=== PATIENT | female | born 1950 | race Caucasian/White ===

== ENCOUNTER 2017-01-23 09:39 | Inpatient (IN) | payer MEDICAID, OTHER ==
--- NOTE | 2017-01-23 10:00 | CPEKG ---
Heart Rate: 65 RR Interval: 923 P-R Interval: 136 QRSD Interval: 82 QT Interval: 392 QTC Interval: 408 P [place]: 63 QRS [place]: 85 T Wave [place]: -57 EKG Severity - ABNORMAL ECG - EKG Impression: SINUS RHYTHM EKG Impression: BORDERLINE RIGHT AXIS DEVIATION EKG Impression: NONSPECIFIC T ABNORMALITIES, DIFFUSE LEADS Electronically Signed By: Jaz Barton 23-Jan-2017 16:09:16
[2017-01-23 10:25] LABS: % IMMATURE GRANULYOCYTES 0.2 % (0.0-1.1); ABSOLUTE IMMATURE GRANULOCYTES 0.01 10^3/uL (0.00-0.10); ADD DIFF? NO; ADD MORPH? NO; ADD SCAN? NO; ATYPICAL LYMPHOCYTE FLAG 0 (0-99); FRAGMENT RBC FLAG 0 (0-99); HEMATOCRIT 43.9 % (38.0-47.0); HEMOGLOBIN 14.3 g/dL (12.6-16.3); LEFT SHIFT FLG 0 (0-99); LIPEMIA HEMOLYSIS FLAG 80 (0-99); MEAN CELL HEMOGLOBIN 31.6 pg (27.9-34.1); MEAN CELL HEMOGLOBIN CONCENTR. 32.6 g/dL (32.4-36.7); MEAN CELL VOLUME 96.9 fL (81.5-99.8); MEAN PLATELET VOLUME 12.3 fL (8.7-11.7); PLATELET CLUMPS FLAG 60 (0-99); PLATELET COUNT 221 10^3/uL (150-400); RED BLOOD CELL COUNT 4.53 10^6/uL (4.18-5.33); RED CELL DISTRIBUTION WIDTH 11.9 % (11.5-15.2)
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
[2017-01-23] MEDS ORDERED: ASPIRIN 81 MG CHEWABLE TAB PO ONE (11:03)
[2017-01-23 11:18] LABS: TROPONIN I 0.021 ng/mL (0-0.034)
[2017-01-23 11:28] LABS: ANION GAP 15 mEq/L (8-16); CALCIUM 9.7 mg/dL (8.5-10.4); CARBON DIOXIDE 20 mEq/l (22-31); CHLORIDE 105 mEq/L (97-110); CREATININE 0.7 mg/dL (0.6-1.0); GLOMERULAR FILTRATION RATE > 60; GLUCOSE 78 mg/dL (70-100); SODIUM 140 mEq/L (134-144)
[2017-01-23 11:30] LABS: SPECIMEN HEMOLYSIS 261
[2017-01-23 11:31] LABS: POTASSIUM 5.3 mEq/L (3.5-5.2)
[2017-01-23] MEDS ORDERED: ONDANSETRON 4 MG/2 ML VIAL IVP PRN (15:28)
[2017-01-23] MEDS ORDERED: ACETAMINOPHEN 325 MG TAB PO PRN (15:28)
[2017-01-23] MEDS ORDERED: ONDANSETRON DISINTEGRATING 4 MG TAB PO PRN (15:28)
--- NOTE | 2017-01-23 16:03 | GHP ---
[f rep st] HISTORY AND PHYSICAL DATE OF ADMISSION: 01/23/2017 HISTORY OF PRESENT ILLNESS: The patient is a pleasant 66-year-old female with a history of PR x3 wi th negative caths, presumed secondary to coronary vasospasm, who presents with increasing frequency of chest symptoms. She describes them as a pressure. Sometimes it radiates to her jaw. Last night , she had chest pressure and orthopnea. She has not had lower extremity edema. She sat up. She to ok a nitro which perhaps improved a bit, but did not entirely remove her symptoms. She sought care today. Regarding coronary disease, she had an angiogram performed in March 2015 showing normal cor onary arteries with normal LV size and function. She had a subsequent echocardiogram a couple of da ys after that, after she was readmitted with positive troponins and chest pain, showing focal area o f hypokinesis involving the mid anterior septal wall. This was not new at the time. She had been discharged on a calcium channel tiffanie diltiazem which she discontinued after a week o r so because of lower extremity edema. She takes no other medications. She has not had fever, chills. No musculoskeletal strain. No nausea, vomiting, diarrhea. No cough or shortness of breath outside the episodes that describe them. She does have some chronic low hayley k pain, and she has tried to exercise to improve it. She finds her exercise tolerance is decreasing , and she feels somewhat limited by these episodes that she has been having. REVIEW OF SYSTEMS: Complete 10-point review of systems conducted, negative except as noted in the H PI. PAST MEDICAL HISTORY: Possible vasospasm with PR. ALLERGIES: No known drug allergies. HOME MEDICATIONS: Vitamin D. SOCIAL HISTORY: She lives at a [facility] in [place]. No tobacco, no alcohol. Originally from [place], [place]. FAMILY HISTORY: Reviewed and unremarkable. PHYSICAL EXAMINATION: VITAL SIGNS: Temp 36.5, blood pressure 127/78, pulse 76, breathing 16 times a minute, 98% on room air. GENERAL: No acute distress. HEENT: Sclerae anicteric. Oropharynx stephen ar. Mucous membranes are moist. NECK: Supple without lymphadenopathy or JVD. LUNGS: Clear to au scultation bilaterally. HEART: S1, S2. ABDOMEN: Soft, nontender, nondistended. LOWER EXTREMITIE S: Without edema. Calves are nontender. SKIN: Without rash. NEUROLOGIC: Nonfocal. Chest x-ray shows no acute cardiopulmonary disease. No cardiomegaly. It is interpreted by me. EKG interpreted by me shows sinus at 65 with normal axis and intervals. There is some T-wave inversion in V3 to V5 which is new from March 2015. There is an inferior T-wave inversion which is not new. White count 4.5, hematocrit 44, platelets are 221,000. Sodium 140, potassium 5.3, chloride 105, b icarb 20, BUN 9, creatinine 0.7, glucose 78. Troponin 0.021. BNP is 2.6. I discussed the case Dr. Opal Barton. ASSESSMENT/PLAN: A 66-year-old female with a history of vasospasm presents with symptoms concerning for vasospastic angina. 1. Vasospasm. She has a potentially ischemic EKG. She has a negative but not undetectable troponi n. I will cycle her troponins. She received an aspirin in the emergency department. I will start her on verapamil given her previous intolerance of diltiazem. I will have Cardiology see her in the morning. We will check an echocardiogram and follow her on telemetry. 2. Hyperkalemia. This is mild and probably not contributing to her current presentation. We will repeat it in the morning. 3. Acidosis. Again, this is mild and unlikely to be contributing to her presentation. 4. Prophylaxis. Pharmacologic prophylaxis is indicated if in the hospital longer than 24 hours. Tyshawn carson will hold for now. DISPOSITION: Observation status. /[id number]/MODL
[2017-01-23] MEDS: VERAPAMIL 40 MG TAB PO SCH ×2 (16:32→22:07)
--- NOTE | 2017-01-23 16:49 | ECHO ---
[id number] + + [address] : : [place] [address] : : [phone] + + Adult Echocardiographic Report + ------+ :Name: Lisa KINGyuval Date: 01/23/2017 03:41 PM : : Hospital Admission Number: [id number] Locatio n: 220: :: 1950 Gender: Female Height: 66 in : :Age: 66 yrs Race: WH Weight: 144 lb : :Reason For Study: Chest Pain : : BSA: 1.7 meters 2 : :History: Vasospasm with focal WMA : + ------+ MMode/2D Measurements \T\ Calculations IVSd: 0.91 cm LVIDd: 4.4 cm FS: 43.5 % Ao root diam: LVPWd: 0.76 cm LVIDs: 2.5 cm EDV(Teich): 3.4 cm 88.4 ml LA dimension: ESV(Teich): 3.4 cm 22.2 ml EF(Teich): 74.9 % LVLd ap4: 7.2 cm SV(MOD-sp4): EDV(MOD-sp4): 34.0 ml 52.0 ml LVLs ap4: 5.8 cm ESV(MOD-sp4): 18.0 ml EF(MOD-sp4): 65.4 % Normal Measurement Values: + + :LVIDd (3.5-5.7cm) IVSd (0.6-1.1cm) LVPWd (0.6-1.1cm) Aortic Root (2.0-3.7cm)Left Atrium (1.5-4.0cm): :LV Vol(d) (76-115ml) LV Vol(s) (29-48ml) Ejec Fraction (50-65%)PV Harris (0.6- 1.2m/s) TV Harris (0.4-1.0m/s) : :MV E Harris (0.8-1.0m/s)MV A Harris (0.3-1.0m/s)LVOT Harris (0.7-1.2m/s) Asc Ao Harris ( 0.9-1.8m/s) : + + Doppler Measurements \T\ Calculations MV E max harris: 74.0 cm/sec Ao V2 max: 84.2 cm/sec MV A max harris: 59.7 cm/sec Ao max P.8 mmHg MV E/A: 1.2 Left Ventricle The left ventricle is normal in size. There is normal left ventricular wall thickness. Ejection Fraction = 55%. LV base/mid inferior wall is akinetic. There is also a focal akinetic notch visualized in the basal anteroseptal area. Right Ventricle The right ventricle is normal in size and function. Atria The left atrial size is normal. Right atrial size is normal. The atrial septum is aneurysmal. Mitral Valve The mitral valve is normal in structure and function. There is no evidence of mitral valve prolapse. There is no mitral valve stenosis. There is trace mitral regurgitation. Tricuspid Valve Normal tricuspid valve. There is trace tricuspid regurgitation. Aortic Valve The aortic valve is trileaflet. The aortic valve opens well. There is no aortic stenosis. Trace aortic regurgitation. Pulmonic Valve The pulmonic valve is normal in structure and function. There is no pulmonic valvular regurgitation. Great Vessels The aortic root is normal size. Pericardium/Pleural There is no pericardial effusion. Conclusion A complete two-dimensional transthoracic echocardiogram was performed (2D, M-mode, Doppler and color flow Doppler). LV base/mid inferior wall is akinetic. There is also a focal akinetic notch visualized in the basal anteroseptal area. Ejection Fraction = 55%. There is trace mitral regurgitation. There is trace tricuspid regurgitation. Trace aortic regurgitation. The atrial septum is aneurysmal. Final Reading Physician: Primitivo Jaramillo signed on 01/23/2017 04:48 PM Ordering Physician: Marvin Laguna Performed By: Lucero Byers, [facility]
[2017-01-24 05:10] LABS: ANION GAP 7 mEq/L (8-16); CALCIUM 9.3 mg/dL (8.5-10.4); CARBON DIOXIDE 25 mEq/l (22-31); CHLORIDE 107 mEq/L (97-110); CREATININE 0.7 mg/dL (0.6-1.0); GLOMERULAR FILTRATION RATE > 60; GLUCOSE 75 mg/dL (70-100); POTASSIUM 4.2 mEq/L (3.5-5.2); SODIUM 139 mEq/L (134-144)
[2017-01-24 05:20] LABS: TROPONIN I < 0.012 ng/mL (0-0.034)
[2017-01-24] MEDS: ASPIRIN 81 MG CHEWABLE TAB PO SCH (08:27)
[2017-01-24] MEDS: CHOLECALCIFEROL VIT D3 1,000 UNITS TAB PO SCH (08:27)
[2017-01-24] MEDS: VERAPAMIL 40 MG TAB PO SCH (08:28)
[2017-01-24] MEDS ORDERED: Herbals/Supplements -Info Only PO SCH (09:00)
--- NOTE | 2017-01-24 09:01 | CPEKG ---
Heart Rate: 69 RR Interval: 870 P-R Interval: 132 QRSD Interval: 76 QT Interval: 362 QTC Interval: 388 P [place]: 73 QRS [place]: 94 T Wave [place]: -32 EKG Severity - BORDERLINE ECG - EKG Impression: SINUS RHYTHM EKG Impression: RIGHT AXIS DEVIATION EKG Impression: BORDERLINE T ABNORMALITIES, DIFFUSE LEADS Electronically Signed By: Mike Vásquez 24-Jan-2017 15:52:29
[2017-01-24] MEDS ORDERED: REGADENOSON 0.4 MG/5 ML SYR IVP ONE (11:27)
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
--- NOTE | 2017-01-24 16:21 | HOSPPROG ---
Hospitalist Progress Note Assessment/Plan: 66 yo F w likely vasospastic angina admitted w chest sx, arm sx cv: neg stress echo unchanged willing to take diltiazem chest sx: takes NSAIDS trial of ppi discussed at length w pt arm sx: MRI of neck hyperkalemia: resolved no events tele dispo: inpt Subjective: tele: no events. case d/w dr gamez Objective: Vital Signs Temp Pulse Resp BP Pulse Ox 36.6 C 72 12 130/79 H 97 01/24/17 12:00 01/24/17 12:00 01/24/17 12:00 01/24/17 12:00 01/24/17 12:00 Laboratory Results 01/24/17 04:29 01/23/17 01/24/17 01/25/17 05:59 05:59 05:59 Intake Total 500 Balance 500 - Physical Exam Constitutional: no apparent distress, appears nourished Eyes: PERRL, anicteric sclera Ears, Nose, Mouth, Throat: moist mucous membranes, hearing normal Cardiovascular: regular rate and rhythym, no murmur, rub, or gallop, No systolic murmur Respiratory: no respiratory distress, no rales or rhonchi Gastrointestinal: normoactive bowel sounds, soft, non-tender abdomen Genitourinary: No garcia in urethra Skin: warm, normal color Musculoskeletal: full muscle strength, no muscle tenderness ICD10 Worksheet Patient Problems: Problems Problem Status Onset Chest pain Acute NSTEMI (non-ST elevated myocardial infarction) Acute NSVT (nonsustained ventricular tachycardia) Acute
[2017-01-24] MEDS: PANTOPRAZOLE SODIUM 40 MG TAB PO SCH (17:35)
[2017-01-24] MEDS: DILTIAZEM CD 120 MG CAP PO SCH (18:39)
[2017-01-24] MEDS ORDERED: diphenhydrAMINE 25 MG CAP PO PRN (23:23)
[2017-01-24] MEDS ORDERED: DIPHENHYDRAMINE CREAM TP PRN (23:24)
[2017-01-25 08:07] VITALS: TEMP 98
[2017-01-25] MEDS: ASPIRIN 81 MG CHEWABLE TAB PO SCH (08:43)
[2017-01-25] MEDS: PANTOPRAZOLE SODIUM 40 MG TAB PO SCH (08:43)
[2017-01-25] MEDS: CHOLECALCIFEROL VIT D3 1,000 UNITS TAB PO SCH (08:43)
[2017-01-25] MEDS: DILTIAZEM CD 120 MG CAP PO SCH (08:50)
[2017-01-25 10:58] VITALS: BP 110/72; PULSE 75; RESP 14; O2SAT 95
[2017-01-25] MEDS ORDERED: METOPROLOL TARTRATE 25 MG TAB PO SCH (12:00)
--- NOTE | 2017-01-25 14:11 | HOSPPROG ---
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 ready for dc Objective: Vital Signs Temp Pulse Resp BP Pulse Ox 36.7 C 75 14 110/72 95 01/25/17 10:56 01/25/17 10:56 01/25/17 10:56 01/25/17 10:56 01/25/17 10:56 01/24/17 01/25/17 01/26/17 05:59 05:59 05:59 Intake Total 2300 Balance 2300 - Physical Exam Constitutional: no apparent distress, appears nourished Eyes: PERRL, anicteric sclera Ears, Nose, Mouth, Throat: moist mucous membranes, hearing normal Cardiovascular: regular rate and rhythym, no murmur, rub, or gallop Respiratory: no respiratory distress, no rales or rhonchi Gastrointestinal: normoactive bowel sounds, soft, non-tender abdomen Genitourinary: no bladder fullness, No garcia in urethra Skin: warm, normal color Musculoskeletal: full muscle strength, no muscle tenderness Neurologic: AAOx3, sensation intact bilaterally Psychiatric: interacting appropriately, not anxious Lymph, Heme, Immunologic: no cervical LAD ICD10 Worksheet Patient Problems: Problems Problem Status Onset Chest pain Acute NSTEMI (non-ST elevated myocardial infarction) Acute NSVT (nonsustained ventricular tachycardia) Acute
--- NOTE | 2017-01-25 16:10 | SOAPPROG ---
[facility] Progress Note Assessment/Plan: Assessment: 1. Severe neck pain 2. Cervical neck disease 3. History of trauma to the neck 4. History of myocardial infarction 5. Question of coronary spasm 6. Lumbar spine disease. 7. Shortness of breath She has had major problems for a long time. She has really bad neck disease and lumbar sacral disease and surgeons have been telling her that they are not sure they can make the pain any better and they recommended she not have surgery until she has much more pain and just can't live with that. She is getting the point where she is close to that for her upper neck chest pain back by the scapula. She has seen her doctors for this. She came into this hospital with question of coronary disease causing her trouble we did not do a coronary angiogram she has had 2-coronary angiograms in the past. She was told that she had myocardial infarction at this time because she had elevated troponins. Rather we did was a nuclear imaging stress test and showed no signs of ischemia she went on to have an MRI of her cervical spine and the results are attached and she is going to review this with her orthopedic surgeons. They are mostly in on [facility] [place] because that is where her insurance is based and she will be working with them. With her negative nuclear study she wants no further cardiovascular evaluation. She is taking diltiazem and verapamil and had rashes to both of them does not want to try any more calcium channel blockers. She has nitroglycerin which she can use to see if it helps some rib pain it usually does not. She also will try metoprolol 25 mg twice a day and see if that helps her pain. Metoprolol can help both coronary artery disease pain but it also might help for other types of chest pain of unknown etiology. We have carefully reviewed the options and she wants no further testing. There is no reason think she has pulmonary embolic disease. No reason think she has other significant pathologic conditions right now that we need to evaluate. She would like to go home and that is being worked on by the hospitalist. I have talked to the hospitalist about her she also gets intermittent shortness of breath and she has never had asthma. I think that a pulmonary consultation might make sense and I have recommended that but she is not going to be doing that at this point time she would rather not see the pulmonary doctors before she leaves. I have invited her to follow up with me in a week or so and she says she will do that. All her questions have been answered. So she is leaving us with neck pain without a clear etiology I do not think it is ischemic disease I do not think she has any obstructive coronary disease. I do not think she has coronary spasm. On when she was taking calcium channel blockers got no relief from the pain whatsoever. I think this pain is related to musculoskeletal problems most likely or maybe other possible GI or pulmonary pathology. She is going to follow up with her doctors and continues to get very close evaluation. However she is leaving the hospital with chest pain of unknown etiology if it deteriorates she needs to get back to us for further evaluation and I have stressed that to her. Her pulses are full and equal is nothing to suggest disease of the great vessels. Nothing to suggest congenital anomalies the cardiovascular system contributing to this pain syndrome. There is nothing to suggest pericardial disease or a myocarditis right now. Plan: 01/25/17 16:05 Subjective: She is having no chest pain or chest tightness that is different than what she came into the hospital with. She is not having palpitations She is not having fevers chills or cough She is not having syncope or near syncope She is not having nausea vomiting diarrhea No sputum production no cough no fever chills. She has ongoing neck musculoskeletal and back pain. She has no edema Objective: Vital Signs Temp Pulse Resp BP Pulse Ox 36.7 C 75 14 110/72 95 01/25/17 10:56 01/25/17 10:56 01/25/17 10:56 01/25/17 10:56 01/25/17 10:56 01/24/17 01/25/17 01/26/17 05:59 05:59 05:59 Intake Total 2300 Balance 2300 Physical Exam - Physical Exam General Appearance: alert, moderate distress Neck: full range of motion Respiratory: rhonchi Cardiac/Chest: regular rate, rhythm, systolic murmur Abdomen: normal bowel sounds, non-tender, soft Extremities: normal inspection, No pedal edema Neuro/Psych: alert, normal mood/affect, oriented x 3 ICD10 Worksheet Patient Problems: Problems Problem Status Onset Chest pain Acute NSTEMI (non-ST elevated myocardial infarction) Acute NSVT (nonsustained ventricular tachycardia) Acute
--- NOTE | 2017-01-26 01:25 | GDS ---
[f rep st] DISCHARGE SUMMARY DISCHARGE DIAGNOSES: 1. 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 2. Cervical spine disease. 3. Possible reflux. PROCEDURES: 1. Myocardial perfusion study which was negative. 2. Cervical spine MRI, showing mild DJD, with neuroforaminal stenosis, but no central canal stenosi s with normal exam. She did have straightening of her spine suggestive of muscle spasms. 3. She had an echocardiogram that showed intact LV function, but LV base and mid inferior wall are akinetic with focal akinetic notch on the basal anterior septal area. HOSPITAL COURSE: The patient was admitted. She had these symptoms of spasms in her chest. Ultimat arya, she had a negative stress test. She has had an angiograms in the past, showing clean coronarie s. She had negative troponins while here. She was started on calcium channel blockers, both verapa mil and diltiazem, and developed a subtle rash on her skin. She was transitioned over to metoprolol . She does take NSAIDs because of degenerative joint disease, and also there was concern for reflux , so therefore a PPI was started, which she was tolerating and that is why she did do a 3-week trial of that. She was also given limited Valium as a trial for possible muscle spasm in her neck. She is discharged home today. /[id number]/MODL
== END 2017-01-25 14:54 | disposition home or self-care (01) | DRG 311 ==
LOC: F2W 12:06 → OBSVTOIN 01-24 16:18
PROVIDERS: ADMIT Internal Medicine; ATTEND Internal Medicine
DX: I20.1 Angina pectoris with documented spasm (principal); M47.812 Spondylosis without myelopathy or radiculopathy, cervical region; I25.2 Old myocardial infarction
CPT/HCPCS: A9500; G0378; J2785

== ENCOUNTER → 2017-12-18 | Outpatient (CLI) | payer MEDICAID | LOC: FIMAGING 15:23 | PROVIDERS: ATTEND Nurse Practitioner Adult Health | DX: R42 Dizziness and giddiness (principal); R26.9 Unspecified abnormalities of gait and mobility; R07.9 Chest pain, unspecified ==

== ENCOUNTER → 2018-05-07 | Outpatient (CLI) | payer OTHER, MEDICAID | LOC: FIMAGING 07:02 | PROVIDERS: ATTEND Internal Medicine | DX: R07.9 Chest pain, unspecified (principal); R10.11 Right upper quadrant pain ==

== ENCOUNTER → 2018-08-04 | Outpatient (CLI) | payer OTHER, MEDICAID | LOC: FIMAGING 08:48 | PROVIDERS: ATTEND Physician Assistant Surgical | DX: M51.36 Other intervertebral disc degeneration, lumbar region (principal); M99.73 Connective tissue and disc stenosis of intervertebral foramina of lumbar region ==

== ENCOUNTER → 2018-12-03 | Outpatient (CLI) | payer OTHER, MEDICAID | DX: R07.9 Chest pain, unspecified (principal) | CPT/HCPCS: 78452; 93017; 93225; 93226; A9500 ==

== ENCOUNTER 2018-12-14 07:02 | Day surgery (SDC) | payer OTHER, MEDICAID ==
[2018-12-14] MEDS ORDERED: FAMOTIDINE 20 MG TAB PO ONE (07:07)
[2018-12-14] MEDS ORDERED: NS 1,000 ML IV ONE (07:07)
[2018-12-14] MEDS ORDERED: diphenhydrAMINE 25 MG CAP PO ONE ×2 (07:07→07:24)
[2018-12-14] MEDS ORDERED: DIAZEPAM 5 MG TAB PO ONE (07:07)
[2018-12-14] MEDS ORDERED: ASPIRIN EC 325 MG TAB PO ONE ×2 (07:07→07:24)
[2018-12-14] MEDS ORDERED: DIAZEPAM 5 MG TAB ONE (07:25)
[2018-12-14 07:55] LABS: PLATELET COUNT 230 10^3/uL (150-400)
[2018-12-14 08:04] LABS: INR 0.9 (0.83-1.16); PROTIME(PATIENT) 11.8 SEC (12.0-15.0)
[2018-12-14] MEDS ORDERED: LIDOCAINE 1% 300 MG/30 ML SDV ONE (08:42)
[2018-12-14] MEDS ORDERED: MIDAZOLAM 2 MG/2 ML VIAL ONE (08:42)
[2018-12-14] MEDS ORDERED: fentaNYL 100 MCG/2 ML INJ ONE (08:42)
[2018-12-14] MEDS ORDERED: HEPARIN 10,000 UNIT/10 ML MDV (1,000 UNIT/ML) ONE (08:43)
[2018-12-14] MEDS ORDERED: VERAPAMIL 5 MG/2 ML VIAL ONE (08:43)
[2018-12-14] MEDS ORDERED: IOPAMIDOL (ISOVUE-370) 150 ML BTL IV ONE (08:43)
--- NOTE | 2018-12-14 10:02 | PDGENHP ---
History & Physical Chief Complaint: Chest pain and abnormal nuclear stress test. History of Present Illness: The patient is a 67-year-old female with a history of chest pain episodes including non ST elevation myocardial infarctions with troponin levels as high as 6.0. 2 prior cardiac catheterizations have demonstrated angiographically normal coronary arteries. Because of ongoing symptoms, she recently underwent a nuclear stress test. That study demonstrated ST segment depression on ECG and a mixed fixed/partially reversible inferior perfusion abnormality. Pertinent Past, Social, Family History: Please refer to Dr. Naima Villalpando's office note from September of this year which has been placed on the chart for informational purposes. Relevant Physical Exam: Well-developed, well-nourished patient in no acute distress. Alert and oriented x3. No scleral icterus. Mucous membranes moist. Carotid pulses 2+ without bruits. Lung gonzlaez clear to auscultation. Regular rate and rhythm without a murmur. Abdomen without tenderness or masses. Normal bowel sounds. 2+ pulses in all 4 extremities. No peripheral edema.
--- NOTE | 2018-12-14 10:03 | PDPROPOC ---
Sedation Plan of Care Sedation Plan of Care: vital signs stable, mental status noted, patient educated of risks, benefits, alternatives, patient can tolerate sedation ASA Classification: ASA 1 Planned drugs: fentanyl, midazolam Mallampati Score: Class 1 Mallampati Reference Image: Patient passed 3-3-2 rule?: Yes
[2018-12-14] MEDS ORDERED: NITROGLYCERIN 0.4 MG BTL SL PRN (10:53)
[2018-12-14] MEDS ORDERED: ATROPINE SULFATE 1 MG/10 ML SYR IVP PRN (10:53)
[2018-12-14] MEDS ORDERED: ONDANSETRON 4 MG/2 ML VIAL IVP PRN (10:53)
--- NOTE | 2018-12-14 11:00 | PDDXCAT ---
Diagnostic Cath Note - . Date: 12/14/18 Senior Administrator Support: Dany Indication: other (Chest pain and abnormal nuclear stress test.) - Procedure Access: right wrist Procedure: left heart catheterization, coronary angiography, left ventriculogram - Materials Left Heart Cath size: 4F Left Heart Cath materials: standard multipack (JL4, JR4, pigtail) - Findings-Left Heart Catheterization LM: Angiographically normal. LAD: Angiographically normal. LCX: Angiographically normal. RCA: Angiographically normal. EDP: 18 mmHg Complications: None Estimated blood loss: <50ml Closure method: TR Band Assessment: 1) Angiographically normal coronary arteries. 2) Normal left ventricular systolic function. Patient Problems: Problems Problem Status Onset Chest pain Acute NSTEMI (non-ST elevated myocardial infarction) Acute NSVT (nonsustained ventricular tachycardia) Acute
--- NOTE | 2018-12-15 07:31 | CPEKG ---
Test Reason : OPEN Blood Pressure : / mmHG Vent. Rate : 076 BPM Atrial Rate : 075 BPM P-R Int : 132 ms QRS Dur : 082 ms QT Int : 382 ms P-R-T Axes : 000 088 -32 degrees QTc Int : 430 ms Sinus rhythm Borderline right axis deviation Nonspecific T abnormalities, diffuse leads Confirmed by Bola Queen ([id number]) on 12/15/2018 7:30:41 AM Referred By: Slade Saenz Confirmed By:Bola Queen
== END 2018-12-14 14:27 | disposition home or self-care (01) ==
LOC: FCATH 07:02
PROVIDERS: ATTEND Internal Medicine Interventional Cardiology
PROC: B2111ZZ Fluoroscopy of Multiple Coronary Arteries using Low Osmolar Contrast (ICD-10-PCS; principal; 2018-12-14)
PROC: 4A023N7 Measurement of Cardiac Sampling and Pressure, Left Heart, Percutaneous Approach (ICD-10-PCS; principal; 2018-12-14)
PROC: B2151ZZ Fluoroscopy of Left Heart using Low Osmolar Contrast (ICD-10-PCS; principal; 2018-12-14)
DX: R94.39 Abnormal result of other cardiovascular function study (principal); R07.9 Chest pain, unspecified; I25.2 Old myocardial infarction
CPT/HCPCS: 93005; 93458; C1769; J1644; J2250; J3010; Q9967

== ENCOUNTER → 2018-12-26 | Outpatient (CLI) | payer OTHER, MEDICAID | LOC: FIMAGING 16:28 | PROVIDERS: ATTEND Internal Medicine | DX: M79.672 Pain in left foot (principal) ==

== ENCOUNTER → 2019-02-01 | Outpatient (CLI) | payer OTHER, MEDICAID | LOC: FIMAGING 06:48 ==